=== PATIENT | male | born 1965 | race Caucasian/White ===

== ENCOUNTER → 2016-06-28 | Outpatient (CLI) | payer BC ==
--- NOTE | 2016-06-28 09:29 | KCIC ---
PROCEDURE Abdomen CT without contrast. HISTORY Left flank pain. TECHNIQUE Computed tomographic images of the abdomen were obtained without contrast. One or more of the following individualized dose reduction techniques were utilized for this examination: 1. Automated exposure control; 2. Adjustment of the mA and/or kV according to patient size; 3. Use of iterative reconstruction technique. COMPARISON None. FINDINGS Evaluation of the lower thorax demonstrates no infiltrate, effusion or suspicious pulmonary nodule. There is coronary artery atherosclerosis. There is hepatomegaly and hepatic steatosis. No suspicious hepatic lesion is seen. The gallbladder is surgically absent. The pancreas is unremarkable. The adrenal glands are unremarkable. There is mild splenomegaly, measuring 14.5 cm. There is a 1.1 cm partially exophytic hypodense lesion along the upper pole of the left kidney. There is a punctate calcification within the upper midzone of the right kidney which is vascular in etiology. There is no evidence of nephrolithiasis or obstructive uropathy. There is a small fat containing umbilical hernia. There is no evidence of bowel obstruction. No pathologically enlarged lymph node is seen. There are degenerative changes throughout the spine. No suspicious osseous lesion is seen. IMPRESSION 1. Hepatomegaly and hepatic steatosis. 2. Mild splenomegaly. 3. 1.1 cm hypodense lesion along the upper pole the left kidney, the attenuation of which favors a cyst. This may be too small to characterize sonographically. Follow-up can be performed to confirm benignity. 4. No evidence of nephrolithiasis or obstructive uropathy. Electronically signed by: Norma Resendez (Jun 28, 2016 09:27:36)
== END | disposition home or self-care (01) ==
LOC: KCIC CT 08:51
PROVIDERS: ATTEND Family Medicine
DX: R10.9 Unspecified abdominal pain (principal); K76.0 Fatty (change of) liver, not elsewhere classified; R16.0 Hepatomegaly, not elsewhere classified; R16.1 Splenomegaly, not elsewhere classified
CPT/HCPCS: 74150

== ENCOUNTER → 2017-08-08 | Outpatient (CLI) | payer BC ==
[2017-08-08] MEDS: IOHEXOL 240 MG/ML 50ML VIAL. PO (14:45)
[2017-08-08] MEDS: IOHEXOL 300 MG/ML 100ML VIAL. IV (14:45)
[2017-08-08 15:14] LABS: ISTAT CREATININE 0.8 mg/dL (0.7-1.3)
== END | disposition home or self-care (01) ==
LOC: KCIC CT 14:25
DX: N28.1 Cyst of kidney, acquired (principal); K76.0 Fatty (change of) liver, not elsewhere classified; I70.0 Atherosclerosis of aorta; E11.9 Type 2 diabetes mellitus without complications; R16.0 Hepatomegaly, not elsewhere classified
CPT/HCPCS: 74160; 82565; Q9966; Q9967

== ENCOUNTER → 2019-03-12 | Outpatient (CLI) | payer BC ==
--- NOTE | 2019-03-12 11:45 | KCIC ---
EXAMINATION: Magnetic resonance imaging (MRI) of the thoracic and lumbar spine without contrast 03/12/2019 10:15 AM HISTORY: Right low back pain. History of lipoma. TECHNIQUE: Multiplanar multi-weighted MRI of the thoracic and lumbar spine was performed without intravenous contrast using the standard thoracic and lumbar spine protocol. Contrast information: None administered. COMPARISON: None available. FINDINGS: Thoracic spine: There is reverse S-shaped scoliosis of the thoracic spine with apex levocurvature at T3-T4 and apex dextrocurvature at T7-T8. Vertebral body heights are maintained. Marrow signal intensity is normal in all sequences. There is no significant disc herniation, neuroforaminal or spinal canal stenosis. Minimal disc bulges are identified at T2-T3, T3-T4 and T9-T10 and T12-L1 without significant spinal canal stenosis. Thoracic aorta is normal in caliber. No suspicious pulmonary findings are identified. Thoracic cord signal intensity is normal in all sequences. Lumbar spine: The alignment of the lumbar spine is normal. Vertebral bodies demonstrate normal signal intensity on all sequences. There are no compression fractures. The conus medullaris terminates at the level of L1. The distal spinal cord signal intensity is normal. Mild disc height loss at L4-L5 with minimal endplate edema along the inferior endplate of L4, possibly associated with Schmorl's node. Limited views of the abdomen and pelvis show no soft tissue abnormality. The aorta is normal. Left S2 Tarlov cysts are identified measuring up to 8 mm. L3-L4: Mild disc bulge. There is mild facet arthropathy. There is no neuroforaminal stenosis. There is no spinal canal stenosis. L4-L5: Mild circumferential disc bulge. There is moderate right and mild left facet arthropathy. There is mild right neuroforaminal stenosis. There is no spinal canal stenosis. L5-S1: There is a disc bulge with left foraminal disc protrusion. There is mild to moderate facet arthropathy. There is moderate left neuroforaminal stenosis. There is no spinal canal stenosis. IMPRESSION: Mild degenerative changes of the thoracic and lumbar spine as described in detail above. There is reverse S-shaped scoliosis of the thoracic spine. Electronically signed by: Gracie Santiago MD (03/12/2019 11:41 AM) [facility]
== END | disposition home or self-care (01) ==
LOC: KCIC MRI 09:13
PROVIDERS: ATTEND Family Medicine
DX: M47.815 Spondylosis without myelopathy or radiculopathy, thoracolumbar region (principal); M41.84 Other forms of scoliosis, thoracic region; M48.07 Spinal stenosis, lumbosacral region; M51.27 Other intervertebral disc displacement, lumbosacral region; M46.86 Other specified inflammatory spondylopathies, lumbar region
CPT/HCPCS: 72146; 72148

== ENCOUNTER → 2019-04-08 | Outpatient (CLI) | payer BC ==
--- NOTE | 2019-04-08 13:57 | KCIC ---
Noncontrast CT scan of lumbar spine compared to MRI of the lumbar spine dated March 12, 2019 for back pain, history of lipoma, patient feels a lump at the scar site, right radiculopathy. TECHNIQUE: Contiguous helical 3 mm axial images are obtained through the lumbar spine. Sagittal and coronal reformations are evaluated. No IV contrast was administered. FINDINGS: There is no fracture or acute osseous or alignment abnormality of the lumbar spine. There is a prominent inferior endplate Schmorl's node at L4. This is stable. No central bony canal stenosis is seen in the level.There is degenerative facet arthrosis at multiple levels as previously noted, resulting in mild to moderate neuroforaminal narrowing on the right at L4-5, and to mild neuroforaminal narrowing on the right at L3-4. Atherosclerosis of aorta and iliac arteries is noted. A trace amount of scarring is seen deep to the skin at the area of interest, with no significant soft tissue masses or fluid collections. IMPRESSION: 1. No concerning postoperative sequelae. 2. Mild multilevel degenerative changes resulting in mild to moderate neuroforaminal narrowing on the right at L4-5 and mild neuroforaminal narrowing on the right at L3-4. If the patient's right radiculopathy is new since the prior MRI, repeat MRI to assess for developing nerve root compression may be of benefit. PQRS Compliance Statement: One or more of the following individualized dose reduction techniques were utilized for this examination: 1. Automated exposure control 2. Adjustment of the mA and/or kV according to patient size 3. Use of iterative reconstruction technique Electronically signed by: Gopal Hopkins MD (04/08/2019 1:54 PM) [facility]
== END | disposition home or self-care (01) ==
LOC: KCIC CT 10:16
PROVIDERS: ATTEND Neurological Surgery
DX: M47.26 Other spondylosis with radiculopathy, lumbar region (principal); M48.061 Spinal stenosis, lumbar region without neurogenic claudication; Z87.891 Personal history of nicotine dependence
CPT/HCPCS: 72131

== ENCOUNTER → 2019-04-22 | Outpatient (CLI) | payer BC ==
[~2019-04-22] MED LIST: BUPIVACAINE MPF 0.25% 10 ML VIAL. ONE; DAPA5TAB PO; FENO48TA16 PO; GLIM4TAB4 PO; IOHEXOL 180 MG/ML 10 ML VIAL. ONE; LISI10TA2 PO; METF500T16 PO; SIMV5TAB14 PO; methylPREDNISolone ACETATE 40 MG/ML VIAL. ONE; methylPREDNISolone ACETATE 80 MG/ML VIAL. ONE
--- NOTE | 2019-04-22 13:42 | CONS ---
DATE OF CONSULTATION: 04/22/2019 INITIAL CONSULTATION FOR PAIN CLINIC CHIEF COMPLAINT: Low back pain. HISTORY OF PRESENT ILLNESS: The patient is a 53-year-old male who presents with history of pain for several years, gradually increasing, not a result of any specific injury or action he is aware of. The pain in the low back, mostly on the right side, but also on the left, on the left has been present as long is worse with standing and walking, especially standing still for more than just a few minutes, he developed significant painful knot in his left low to mid back, which is better with stretching, straightening, sitting or lying down. As well as the right side is worse with walking, standing and changing positions, especially with extension of the lumbar spine, twisting to the right side, weightbearing, bending, stooping or lifting items. The patient reports the pain wakes him from sleep at night very rarely, it is usually better with lying down, worse with activity, he has described it affects his bowel or bladder control, sometimes affect his ability to walk, especially on the right side. The patient reports he has had physical therapy, chiropractic treatment and exercise, all of which has been very temporary, also reports pain treatment at [facility] in 2018 and 2019 with epidural injections and trigger point injections which were not helpful and radiofrequency ablation x 2, but the patient reports this was done into the muscle body not into the facet or medial branch in the lumbar spine. The patient reports the pain is constant, sharp, shooting, radiating into the right hip and stabbing in the left mid low back. Disability rating from 0-10, 10 being the worst, is at 6 with family and home responsibilities, 4 with recreation and sexual behavior, 5 with social activity, 7 with occupational activity, 1 with self-care and 1 with life support activities. The patient has tried gabapentin, Flexeril and also lidocaine patches, all of which are very minimal in decreasing the pain. The patient did have MRI scan of the lumbar spine showing mild degenerative changes at L4-L5, L3-L4, L5-S1, circumferential disk bulge at L4-L5 and L5-S1 with left foraminal disk protrusion at L5-S1, [id number] facet arthropathy, moderate left neural foraminal stenosis and no spinal canal stenosis. PAST MEDICAL HISTORY: Significant for type 2 diabetes and obesity. PREVIOUS SURGERY: Include left lung upper lobe resection in 2012, right rotator cuff repair in 2014 and ankle fracture repair in 2016. CURRENT MEDICATIONS: Include Trulicity, metformin, glimepiride, simvastatin, Farxiga and omeprazole. ALLERGIES: The patient has no known drug allergies. FAMILY HISTORY: Significant for no major medical problems or conditions that he is aware of. SOCIAL HISTORY: The patient does not drink alcohol, does not smoke, does not use any illegal, illicit or recreational drugs. He is , lives with his spouse and works, has his own [employer] business and is currently off work for the next few months in the winter. REVIEW OF SYSTEMS: The patient's review of systems is positive for those items mentioned in history of present illness. All systems reviewed and otherwise negative. It is complete, full and well documented on the patient's chart. PHYSICAL EXAMINATION: VITAL SIGNS: The patient's blood pressure is 141/74, pulse 75, respirations 18, temperature 97.6 degrees Fahrenheit, height is 6 feet 4 inches and weight is 334 pounds. GENERAL: The patient is awake, alert, oriented, appropriate, very pleasant demeanor. HEENT: Shows normocephalic, atraumatic. Extraocular movements are intact and symmetrical. Oral cavity: Mucous membranes moist and pink. Dentition is intact. NECK: Shows anterior throat supple without palpable lymphadenopathy noted. Swallow reflex symmetrical. CHEST: Shows normal on inspection. Breath sounds are clear bilaterally. HEART: Shows S1, S2 clear. No murmurs auscultated. ABDOMEN: Obese, soft, nontender, nondistended. No palpable organomegaly is noted. No rebound or guarding demonstrated. BACK: Shows spine grossly in the midline. The patient shows normal cervical lordotic curvature, thoracic kyphotic curvature and lumbar lordotic curvature. Lumbar paraspinous muscle shows symmetrical on inspection, on palpation shows moderate tenderness throughout the right sided upper, middle and lower distribution of paraspinous muscles. The patient has a well-healed, although large scar in the left upper lumbar paraspinous musculature region from previous lipoma by his report. There is significant very firm rope-like musculature just inferior to this scar tissue in the paraspinous musculature itself, very firm, very palpable, very tender, but without specific radiation. This is not present above or below the area, but only on the left side near the surgical scar. The patient shows no tenderness over the spinous processes with direct palpation over the sacrum or sacroiliac regions. The patient has good rotational motion with some moderate tenderness with right lateral rotation and motion as well as extension of the lumbar spine with significant tenderness on the right only. This is better with forward flexion in the left side. Lateral rotation shows no pain on the left side in order as extension on the left. EXTREMITIES: The patient's lower extremities show deep tendon reflexes are 2+ in the patellar, 1+ in the tendo-calcaneus tendons are equal. Motor exam is strong with 5/5 dorsiflexion, extension, quadriceps and hamstring flexion and symmetrical as well. Peripheral pulses are 1+ posterior tibia. No peripheral edema is noted. Straight leg raise noted to be negative for reproduction of radicular symptoms, also Gaenslen's and Javon's maneuvers are negative bilaterally as well. The patient is able to stand, stand on his toes without significant difficulty or loss of balance, walks with a normal appearing gait, does not appear to favor the right or left lower extremity, significantly is not using any assistive devices to ambulate. SKIN: Shows warm and dry, good turgor. No edema. No sores, rashes or bruising throughout. IMPRESSION: 1. This is a 53-year-old male with approximate 3-year history of low back on the right pain and some facet pain on the left side in the mid to low back. 2. MRI scan of lumbar spine as noted. 3. Type 2 diabetes. PLAN: Options were discussed with the patient including conservative medical managements, physical therapies and interventional techniques and he has had multiple modalities tried in the past. We discussed interventional techniques. We discussed specifically right sided L4-L5 and L5-S1 facet joint injections as well as trigger point injection on the left lumbar paraspinous musculature. Risks were discussed including but not limited to bleeding, infection, possibility of epidural hematoma, subsequent neurological compromise, dural puncture, headaches, spinal cord and/or nerve damage, side effects of steroid medication and poor results regarding pain control. The patient understands and wished to proceed. The patient will return to clinic in approximately 2 weeks for followup. He was counseled as to return appointment, activity level and side effects to be aware of. We will proceed today with right sided L4-L5 and L5-S1 facet joint injections with fluoroscopic guidance. DIAGNOSES: Lumbar and lumbosacral spondylosis. PROCEDURE: Right L4-L5 and L5-S1 facet joint injections using C-arm fluoroscopic guidance under sterile prep and drape using local anesthetic. MEDICATION INJECTED: A total of 120 mg Depo-Medrol plus 2 mL of 0.25% bupivacaine and 1 mL total of contrast. CONDITION AT DISCHARGE: Stable. The patient tolerated the procedure well, had no complications. RENÉ COOK MD DR: WOODY/darline JOB#: [id number] / [id number]
== END ==
LOC: PNCL 08:01
PROVIDERS: ATTEND Anesthesiology
DX: M47.817 Spondylosis without myelopathy or radiculopathy, lumbosacral region (principal); E11.9 Type 2 diabetes mellitus without complications; Z79.84 Long term (current) use of oral hypoglycemic drugs
CPT/HCPCS: 64493; 64494; J1030; J1040; J3490; Q9965

== ENCOUNTER → 2019-05-06 | Outpatient (CLI) | payer BC ==
[~2019-05-06] MED LIST changes: -GLIM4TAB4 PO; +GLIM4TAB8 PO
--- NOTE | 2019-05-06 12:49 | PAIN ---
DATE OF SERVICE: 05/06/2019 PROGRESS NOTE FOR PAIN CLINIC DIAGNOSES: Lumbar and lumbosacral spondylosis with lumbar degenerative disk disease. HISTORY OF PRESENT ILLNESS: The patient is a 53-year-old male, who returns for followup status post right-sided L4-L5 and L5-S1 facet joint injections. The patient reports about 80-90% improvement after the first 2-3 days and the pain returned, but still is about 50% improved overall. The patient reports first week he was much better, the pain is returning now about to its basic level, worse with walking, standing, changing positions, especially bending or stooping or extension of the lumbar spine with pain only on the right side from the low back. The patient reports it does not awaken him from sleep at night, better with sitting or lying down. The first week or so, he was doing much, much better, especially the first 2-3 days. The patient reports the pain now is a 9 on a scale of 10 at its worst, 5 on average, 2 at its least and is a 2 today. The patient reports it is aching, sharp, stabbing and constant, becoming more noticeable in the right side without significant radiation in the lower extremity. The patient also has a trigger point area on the left side, which has been problematic near previous lipoma excision. PHYSICAL EXAMINATION: VITAL SIGNS: The patient's blood pressure 135/76, pulse 87, respirations 18, temperature 98.1 degrees Fahrenheit, height is 6 feet 4 inches, weight is 328 pounds. GENERAL: The patient is awake, alert, oriented, appropriate, very pleasant demeanor. HEENT: Shows normocephalic, atraumatic. Extraocular movements are intact and symmetrical. Oral cavity shows mucous membranes moist and pink. Dentition is intact. NECK: Shows anterior throat supple without palpable lymphadenopathy noted. Swallow reflex symmetrical. CHEST: Shows normal on inspection. Breath sounds are clear bilaterally. HEART: Shows S1, S2 clear. No murmurs auscultated. ABDOMEN: Soft, nontender, nondistended. No palpable organomegaly is noted. No rebound or guarding demonstrated. BACK: Shows spine grossly in the midline. Normal appearing thoracic kyphosis and minor flattening of the lumbar lordotic curvature. Lumbar paraspinous muscle shows symmetrical on inspection, on palpation shows some moderate tenderness diffusely, but only diffusely without significant radiation. The patient does show good rotational motion of lumbar spine, both laterally as well as extension and flexion with some moderate tenderness with extension and axial loading of the lumbar spine, more on the right side and also with right lateral rotation greater than 10 degrees, some moderate tenderness on the right side as well. No tenderness on the left side as noted. No tenderness over the spinous processes, sacrum or sacroiliac regions. The patient does have significant tenderness just inferior to the well-healed surgical scar in the left mid back from previous lipoma excision with very firm rope-like musculature consistent with trigger point areas of muscle on the left side. EXTREMITIES: The patient's lower extremities showed deep tendon reflexes 2+ in the patellar, 1+ tendo-calcaneus tendons. Motor exam is strong with 5/5 dorsiflexion, extension, quadriceps and hamstring flexion and symmetrical. Peripheral pulses are 1+ posterior tibial. No peripheral edema is noted. Options were discussed with the patient. The patient's old chart was reviewed as his current medication regimen updated. Current review of systems updated today as well. We will proceed with a repeat right-sided L4-L5 and L5-S1 facet joint injections using fluoroscopic guidance. Risks were again discussed including, but not limited to bleeding, infection, possibility of epidural hematoma, subsequent neurological compromise, dural puncture, headaches, spinal cord and/or nerve damage, side effects of steroid medication and poor results regarding pain control. The patient understands and wished to proceed. The patient will return to clinic in approximately 2 weeks for followup, was counseled on return appointment, activity level and side effects to be aware of. DIAGNOSIS: Lumbar and lumbosacral spondylosis. PROCEDURE: Right-sided L4-L5 and L5-S1 facet joint injections using C-arm fluoroscopic guidance under sterile prep and drape using local anesthetic. MEDICATION INJECTED: A total of 120 mg of Depo-Medrol plus 2 mL of 0.25% bupivacaine and 1 mL total of contrast. CONDITION AT DISCHARGE: Stable. The patient tolerated the procedure well, had no complications. FOLLOWUP: The patient will return to clinic in approximately 2 weeks for followup. We did discuss potential radiofrequency ablation in the future. The patient has continued successful results with the diagnostic procedure today. RENÉ COOK MD DR: WOODY/darline JOB#: [id number] / [id number]
== END ==
LOC: PNCL 09:00
PROVIDERS: ATTEND Anesthesiology
DX: M47.817 Spondylosis without myelopathy or radiculopathy, lumbosacral region (principal); M51.36 Other intervertebral disc degeneration, lumbar region
CPT/HCPCS: 64493; 64494; J1030; J1040; J3490; Q9965

== ENCOUNTER → 2019-05-23 | Outpatient (CLI) | payer BC ==
[~2019-05-23] MED LIST changes: +ASPI81TA50 PO; -IOHEXOL 180 MG/ML 10 ML VIAL. ONE; +LIDOCAINE 1% PF 2 ML VIAL. ONE; +LIDOCAINE 2% PF 5 ML VIAL. ONE; -methylPREDNISolone ACETATE 40 MG/ML VIAL. ONE
--- NOTE | 2019-05-24 | PAIN ---
DATE OF SERVICE: 05/23/2019 PROGRESS NOTE FOR PAIN CLINIC DIAGNOSES: Lumbar and lumbosacral spondylosis, lumbar degenerative disc disease. HISTORY OF PRESENT ILLNESS: The patient is a 54-year-old male who returns for followup status post right-sided L4-L5 and L5-S1 facet joint injections. The patient reports he did very well with these about 70% improvement for about a week and then the pain returned in the low back, right side, right low back, some radiating into the posterior gluteus, but only into the gluteus, not at the lower extremity. The patient reports the pain is a 9 on a scale of 10 at its worst over the past week, 6 on average, 2 at its least, and is 6 today. The patient reports it is aching, sharp, tight, shooting across the back, into the right hip, stabbing and constant in the back itself, worse with extension of the lumbar spine, worse with walking, standing, changing positions, better with sitting or lying down. It has been waking him from sleep at night about once or twice at night. The patient reports initially he was doing increased distance walking, doing work activities, household activities with greater ease and greater comfort, also traveling with greater ease. Now, the pain is returning in the low back itself. The patient reports no new motor or sensory deficits, no new bowel or bladder incontinence or other complaints. PHYSICAL EXAMINATION: VITAL SIGNS: The patient's blood pressure is 139/79, pulse 88, respirations 16, temperature 97.9 degrees Fahrenheit, weight is 332 pounds. GENERAL: The patient is awake, alert, oriented, appropriate, very pleasant demeanor. HEENT: Shows normocephalic and atraumatic. Extraocular movements are intact and symmetrical. Oral cavity, his mucous membranes are moist and pink. Dentition is intact. NECK: Shows anterior throat supple without palpable lymphadenopathy noted. Swallow reflex symmetrical. CHEST: Shows normal on inspection. Breath sounds are clear to auscultation bilaterally. HEART: Shows S1 and S2 clear. No murmurs auscultated. ABDOMEN: Soft, nontender, nondistended. BACK: Shows spine grossly in midline. Lumbar paraspinous muscle shows symmetrical on inspection, with palpation some moderate tenderness diffusely, more on the right than in the left in the low lumbar distribution, but mild tenderness on the left side as well. The patient has well-healed surgical scar to the left of midline from previous lipoma removal once again, appreciated also a left thoracotomy scar in the thoracic distribution. The patient has good rotational motion of the lumbar spine with some moderate tenderness with right lateral rotation past 10 degrees and significant tenderness with extension and axial loading of the lumbar spine, greater than 10 degrees, better with forward flexion with some mild tenderness on the right side as well, with forward flexion at 45 degrees. EXTREMITIES: The patient's lower extremities show deep tendon reflexes 2+ in the patellar, 1+ in the tendo-calcaneus tendons. Motor exam is strong with 5/5 dorsiflexion, extension, quadriceps and hamstring flexion, symmetrical and equal. Peripheral pulses are 1+. No peripheral edema bilaterally. Options were discussed with the patient. The patient's old chart was reviewed as his current medication regimen updated. Current review of systems updated today as well. We will proceed with a right-sided radiofrequency ablation at the medial branches of the L4-L5 and L5-S1 level using C-arm fluoroscopic guidance. Risks were again discussed including, but not limited to bleeding, infection, possibility of epidural hematoma, subsequent neurological compromise, dural puncture, headaches, spinal cord and/or nerve damage, potential thermal damage to the surrounding tissues including motor nerves and complete permanent ischemic damage as well as poor results regarding pain control. The patient understands and wished to proceed. The patient will return to the clinic in approximately 3 weeks for followup. He was counseled as to return appointment, activity level, and side effects to be aware of. DIAGNOSIS: Lumbar and lumbosacral spondylosis. PROCEDURE: Right-sided L4-L5 and L5-S1 medial branch radiofrequency ablation under sterile prep and drape using local anesthetic. MEDICATION INJECTED: A total of 80 mg of Depo-Medrol and 3 mL of 0.25% bupivacaine after radiofrequency ablation and 3 mL of 2% lidocaine after motor testing, but prior to radiofrequency ablation, 1 mL at each level after negative aspiration at each level. Please see radiofrequency flowsheet for location, temperatures, duration, impedances, etc. CONDITION AT DISCHARGE: Stable. The patient tolerated the procedure well, discharged under his own power, had no immediate complications. RENÉ COOK MD DR: WOODY/darline JOB#: [id number] / [id number]
== END | disposition home or self-care (01) ==
LOC: PNCL 12:40
PROVIDERS: ATTEND Anesthesiology
DX: M51.36 Other intervertebral disc degeneration, lumbar region (principal); M47.816 Spondylosis without myelopathy or radiculopathy, lumbar region; Z98.890 Other specified postprocedural states
CPT/HCPCS: 64635; 64636; J1040; J2001; J3490

== ENCOUNTER → 2019-06-20 | Outpatient (CLI) | payer BC ==
[~2019-06-20] MED LIST changes: -BUPIVACAINE MPF 0.25% 10 ML VIAL. ONE; -LIDOCAINE 1% PF 2 ML VIAL. ONE; -LIDOCAINE 2% PF 5 ML VIAL. ONE; -methylPREDNISolone ACETATE 80 MG/ML VIAL. ONE
--- NOTE | 2019-06-20 10:58 | PAIN ---
DATE OF SERVICE: 06/20/2019 PROGRESS NOTE FOR PAIN CLINIC DIAGNOSIS: Lumbar and lumbosacral spondylosis. HISTORY OF PRESENT ILLNESS: The patient is a 54-year-old male who returns for followup status post radiofrequency ablation of the right L4-L5 and L5-S1 medial branches. The patient reports about 60% improvement in the right low back. Chief complaint is pain in the left side of the low back just below surgical scar from lipoma excision. We have given him some trigger point injections in the past with very good results, but only lasted about 2 weeks or so. The patient reports he is pain-free for almost 2 weeks after those trigger point injections. The patient reports his main pain is in the left side, is rated as a 7 on a scale of 10 at its worst over the past week, 3 on average, 2 at its least and is a 3 today. The patient reports it is aching, shooting, stabbing, constant with walking, standing, and changing positions, riding on his mower and sitting. The patient reports it does not awaken him from sleep at night, sleeps about 8 hours at a time without difficulty. The patient reports that the right side was doing much better, was increasing activity with greater distance walking, doing work activities, household activities with much greater ease. PHYSICAL EXAMINATION: VITAL SIGNS: The patient's blood pressure 133/104, pulse is 93, respirations 18, temperature is 97.5 degrees Fahrenheit, height is 6 feet 5 inches, weight is 335 pounds. GENERAL: The patient is awake, alert, oriented, appropriate, very pleasant demeanor. HEENT: Shows normocephalic, atraumatic. Extraocular movements are intact and symmetrical. Oral cavity: Mucous membranes moist and pink. Dentition is intact. NECK: Shows anterior throat supple without palpable lymphadenopathy noted. Swallow reflex symmetrical. CHEST: Shows normal on inspection. Breath sounds clear bilaterally. HEART: Shows S1, S2 clear. ABDOMEN: Obese, soft, nontender, nondistended. BACK: Shows spine grossly in the midline. Normal appearing thoracic kyphosis, some minor flattening of lumbar lordotic curvature. Lumbar paraspinous muscle shows symmetrical on inspection, well-healed surgical scars noted in the mid left lumbar paraspinous distribution from previous lipoma excision. There is significant tenderness just inferior to this scar on the left side with firm rope-like musculature in this region consistent with trigger point areas of musculature, right side is nontender. The patient has good rotational motion with much less pain with right and left lateral rotation as well as extension of the lumbar spine with some mild pain in the right side, but only mildly decreased with forward flexion at 45 degrees. EXTREMITIES: Lower extremities show deep tendon reflexes 2+ in the patellar, 1+ tendo-calcaneus tendons. Motor exam is strong with 5/5 dorsiflexion, extension, quadriceps and hamstring flexion symmetrical. Peripheral pulses are 1+ posterior tibial. PLAN: Options were discussed with the patient. The patient's old chart was reviewed as his current medication regimen updated. Current review of systems updated today as well. We will hold on any further injections at this time. We will try a diclofenac patch for the left trigger point region to see if this may decrease the pain to some extent. The patient also given samples of Lyrica 50 mg to take twice daily with instructions, side effects to be aware of the medications discussed. The patient will follow up in approximately 2-3 weeks as needed if pain returns or if the patches and Lyrica are successful as well. RENÉ COOK MD DR: WOODY/darline JOB#: [id number] / [id number]
== END ==
LOC: PNCL 09:33
PROVIDERS: ATTEND Anesthesiology
DX: M47.817 Spondylosis without myelopathy or radiculopathy, lumbosacral region (principal)
CPT/HCPCS: G0463

== ENCOUNTER → 2020-06-17 | Outpatient (CLI) | payer BC ==
[~2020-06-17] MED LIST changes: +BUPIVACAINE MPF 0.25% 10 ML VIAL. ONE; +IOHEXOL 180 MG/ML 10 ML VIAL. ONE; +LISI10TA16 PO; -LISI10TA2 PO; +methylPREDNISolone ACETATE 40 MG/ML VIAL. ONE; +methylPREDNISolone ACETATE 80 MG/ML VIAL. ONE
--- NOTE | 2020-06-17 09:57 | PDOC ---
Progress Note - Pain Clinic Date of Service: DOS: DATE: 06/17/20 TIME: 09:53 Diagnosis: Dx: Lumbar and lumbosacral spondylosis with lumbar degenerative disc disease History or Present Illness: HPI: 55-year-old male returns for follow-up status post right-sided lumbar radi ofrequency ablation as well as facet joint injections approximately 1 year ago. Patient ports did very well about 60 to 70% improvement after the radiofrequency ablation but the pain is returning now on the right side in the low back itself as well as some on the left but most of the right side about 80% patient reports is a 9 on scale 10 is worse over the past week 7 on average for its least is a 7 today patient ported stabbing becoming more constant and severe radiating across the back but mostly just on the right side. Patient reports is worse with standing walking changing positions better with sitting or laying down generally does not awaken from sleep at night patient reports is worse with extending the lumbar spine and axial loading the low back as well again with no radiation to the lower extremities. Patient reports otherwise been doing fairly well over the past year has been sitting in some more uncomfortable throughout one of his leg houses and this is exacerbated the pain appear more recently. Patient reports no new bowel or bladder incontinence no motor or sensory deficits. Physical Exam: VS: Pressure 149/79 pulse 81 respirations 18 temperature 97.9 F height is 65 inches weight is 339 pounds PE: PHYSICAL EXAMINATION: GENERAL: The patient is awake, alert, oriented, appropriate, very pleasant demeanor HEENT: Shows normocephalic, atraumatic. Extraocular movements are intact and symmetrical. Oral cavity: Mucous membranes moist and pink. Dentition is intact. NECK: Shows anterior throat supple without palpable lymphadenopathy noted. Swallow reflex symmetrical. CHEST: Shows normal on inspection. Breath sounds are clear bilaterally, no rales rhonchi or wheezes auscultated. HEART: Shows S1, S2 clear. No murmurs auscultated. ABDOMEN: Soft, nontender, nondistended, obese. No palpable organomegaly is noted. No rebound or guarding demonstrated. BACK: Shows spine grossly in the midline. Normal-appearing cervical lordotic curvature. There is slightly increased thoracic kyphosis, some minor flattening of the lumbar lordotic curvature. Lumbar paraspinous muscles show symmetrical on inspection, on palpation shows some moderate tenderness diffusely throughout the upper, middle and lower distribution of the paraspinous muscles without specific trigger points, without radiation of pain. The patient has good rotational motion of the lumbar spine, both laterally right and left with some moderate pain with right lateral rotation greater than 10 degrees with extension has significant pain in the right low back greater than 10 degrees extension but decreased with forward flexion was performed fully at 45 degrees without significant tenderness. No tenderness over the spinous processes, sacrum or sacroiliac regions. EXTREMITIES: Lower extremities show deep tendon reflexes 2+ in the patellar and tendo calcaneus tendons. Motor exam is 5 on a scale of 5 with right dorsiflexion, extension, quadriceps and hamstring flexion and 5/5 on the left. Peripheral pulses are 1+ posterior tibial. No peripheral edema is noted bilaterally. Lower extremities are warm and dry to touch, equal in color and appearance. SKIN: Shows warm and dry, good turgor. No edema. No sores, rashes or bruising throughout. Procedure: Procedure: Options discussed with the patient. Patient will chart reviews her current medication regimen updated current review of systems updated today as well. We will proceed with right-sided L4-5 and L5-S1 facet joint injections today with fluoroscopic guidance. Risks were discussed including but not limited to: Bleeding, infection, possibility of epidural hematoma and subsequent neurological compromise, dural puncture, headaches, spinal cord and/or nerve damage, side effects of steroid medication, and poor results regarding pain control. Patient understands and wished to proceed. Patient return to clinic in approximate 2 weeks for follow-up, was counseled as return appointment activity level and side effects to be aware of. Medication Injected: Med Injected: Under sterile prep and drape using C-arm fluoroscopic guidance AP and lateral and oblique views, right L4-5 and L5-S1 facet joint injections were performed, medications injected: 120 mg Depo-Medrol +2 cc 0.25% bupivacaine +1 cc contrast. Condition at discharge stable patient tolerated the procedure well and no complications. Condition at Discharge: Condition at Discharge: Condition at discharge stable, patient alert procedure well and had no complications. RENÉ COOK MD Jun 17, 2020 09:57
--- NOTE | 2020-06-17 09:58 | PDOC4 ---
PROCEDURE Procedure Patient was consented for right-sided L4-5 and L5-S1 facet joint injections. Risks were discussed including but not limited to: Bleeding, infection, possibility of epidural hematoma and subsequent neurological compromise, dural puncture, headaches, spinal cord and/or nerve damage, side effects of steroid medication, and poor results regarding pain control. Patient understands and wished to proceed. Under sterile prep and drape using C-arm fluoroscopic guidance AP and lateral and oblique views, L4-5 and L5-S1 facet joint injections were performed, medications injected: 120 mg Depo-Medrol +2 cc 0.25% bupivacaine +1cc contrast. Condition at discharge stable patient tolerated the procedure well and no comp lications. RENÉ COOK MD Jun 17, 2020 09:58
== END | disposition home or self-care (01) ==
LOC: PNCL 08:52
PROVIDERS: ATTEND Anesthesiology
DX: M47.817 Spondylosis without myelopathy or radiculopathy, lumbosacral region (principal); M51.36 Other intervertebral disc degeneration, lumbar region; Z79.82 Long term (current) use of aspirin; Z79.84 Long term (current) use of oral hypoglycemic drugs; Z79.899 Other long term (current) drug therapy; Z98.890 Other specified postprocedural states; Z87.891 Personal history of nicotine dependence; Z72.89 Other problems related to lifestyle
CPT/HCPCS: 64493; 64494; J1030; J1040; J3490; Q9965

== ENCOUNTER → 2020-07-21 | Outpatient (CLI) | payer BC ==
[~2020-07-21] MED LIST changes: -IOHEXOL 180 MG/ML 10 ML VIAL. ONE; -methylPREDNISolone ACETATE 80 MG/ML VIAL. ONE
--- NOTE | 2020-07-21 15:01 | PDOC ---
Progress Note - Pain Clinic Date of Service: DOS: DATE: 07/21/20 TIME: 14:56 Diagnosis: Dx: Lumbar and lumbosacral spondylosis with lumbar degenerative disc disease Myofascial pain History or Present Illness: HPI: 55-year-old male returns follow-up status post right-sided lumbar facet injections on June 17, 2020. Patient reports about 70% improvement for about 10days but the pain is still fairly well controlled on the right side but he has significant pain in the lumbar myofascial distribution which we have trigger pointed with him before in the past. Patient reports this is his main complaint today would like this focused on as his right side is doing fairly well and is stable. Patient reports the pain on the left side and the paraspinous musculature is a 9 on scale 10 is worse over the past week for an average to its least is a 4 today patient went to stabbing and shooting radiating at times across the back but worse with standing changing positions or standing for longer than 5 to 10 minutes. Patient reports no new motor or sensory deficits no new bowel or bladder incontinence or other complaints. Physical Exam: VS: Blood pressure is 149/79 pulse 74 respirations 18 temperature 98.5 F height is 6 foot 5 inches weight is 342 pounds PE: PHYSICAL EXAMINATION: GENERAL: The patient is awake, alert, oriented, appropriate, very pleasant cresencio anor HEENT: Shows normocephalic, atraumatic. Extraocular movements are intact and symmetrical. Oral cavity: Mucous membranes moist and pink. Dentition is intact. NECK: Shows anterior throat supple without palpable lymphadenopathy noted. Swallow reflex symmetrical. CHEST: Shows normal on inspection. Breath sounds are clear bilaterally, no rales rhonchi or wheezes auscultated. HEART: Shows S1, S2 clear. No murmurs auscultated. ABDOMEN: Soft, nontender, nondistended, obese. No palpable organomegaly is n oted. No rebound or guarding demonstrated. BACK: Shows spine grossly in the midline. Normal-appearing cervical lordotic curvature. There is slightly increased thoracic kyphosis, some minor flattening of the lumbar lordotic curvature. Lumbar paraspinous muscles show symmetrical on inspection, on palpation shows some moderate tenderness diffusely throughout the upper, middle and lower distribution of the paraspinous muscles, with significant tenderness in the left lateral distribution of the middle to lower paraspinous distribution just under the previous lipoma excision scar with very firm ropelike muscles are very tender consistent with trigger point areas of musculature in the lumbar paraspinous muscles on the left only. Right side is nontender is firm but without trigger points or radiation. The patient has good rotational motion of the lumbar spine, both laterally as well as extension and flexion without significant difficulty. No tenderness over the spinous processes, sacrum or sacroiliac regions. EXTREMITIES: Lower extremities show deep tendon reflexes 2+ in the patellar and tendo calcaneus tendons. Motor exam is 5 on a scale of 5 with right dorsiflexion, extension, quadriceps and hamstring flexion and 5/5 on the left. Peripheral pulses are 1+ posterior tibial. No peripheral edema is noted bilaterally. Lower extremities are warm and dry to touch, equal in color and appearance. SKIN: Shows warm and dry, good turgor. No edema. No sores, rashes or bruising throughout. Procedure: Procedure: Options were discussed with the patient. Patient chart reviews his current medication regimen updated current review of systems updated today as well. We will proceed with trigger point injection of the left lumbar paraspinous musculature. Risks discussed including but not limited to bleeding infection possibility of intravascular injection sequelae spread to local anesthetic numbness side effects of steroid medication as well as poor results regarding pain control. Patient understands wished to proceed. Patient will return to clinic in approximate 2 weeks for follow-up, was counseled as to return a ppointment activity level and side effects to be aware of. Medication Injected: Med Injected: Under sterile prep and drape patient in sitting position patient's back was identified and the area of tenderness in the left lumbar paraspinous muscles identified and sterilely prepped in the usual fashion. Using 25-gauge needle, 1-1/2 inch, after negative aspiration, trigger points were injected for total of 6 cc of 0.25% bupivacaine and total of 40 mg Depo-Medrol. Patient tolerated the procedure well and had no complications. Condition at Discharge: Condition at Discharge: Condition at discharge stable, patient alert procedure well and had no complications. RENÉ COOK MD Jul 21, 2020 15:01
--- NOTE | 2020-07-21 15:02 | PDOC4 ---
PROCEDURE Procedure Patient was consented for trigger point injections. Risk were discussed inc luding but not limited to bleeding infection possibility of intravascular injection sequelae spread local anesthetic numbness side effects of steroid medication and portal scarring pain control. Patient understands wished to proceed. Under sterile prep and drape patient in sitting position left lumbar paraspinous muscle was identified and sterilely prepped in usual fashion. Using 25-gauge 1- 1/2 inch needle after negative aspiration each injection site total of 6 cc of 0.25% bupivacaine and total of 40 mg of Depo-Medrol was then used to inject the trigger points in the left lumbar paraspinous musculature. Patient tolerated the procedure well and had no complications. RENÉ COOK MD Jul 21, 2020 15:02
== END | disposition home or self-care (01) ==
LOC: PNCL 14:02
PROVIDERS: ATTEND Anesthesiology
DX: M47.817 Spondylosis without myelopathy or radiculopathy, lumbosacral region (principal); M51.36 Other intervertebral disc degeneration, lumbar region; M79.18 Myalgia, other site; Z79.82 Long term (current) use of aspirin; Z79.84 Long term (current) use of oral hypoglycemic drugs; Z79.899 Other long term (current) drug therapy; Z72.89 Other problems related to lifestyle
CPT/HCPCS: 20552; J1030; J3490